=== PATIENT | female | born 1940 | race Caucasian/White ===

== ENCOUNTER → 2020-05-01 06:02 | Outpatient (CLI) | payer MEDICARE, OTHER, SELFPAY ==
--- NOTE | 2020-05-01 07:58 | STRESSREP ---
Stress Test Report Date: 05-01-2020 Procedure: Exercise tolerance test/imaging study Indications: Shortness of breath/dyspnea on exertion Consent: Per the patient Procedure: The patient exercised on a Toni protocol for 6 minutes completing Stage II achieving a peak heart rate of 160 bpm (114% predicted maximal heart rate) with a peak blood pressure 182/58 mmHg and a peak MET capacity of 7 METs. The baseline ECG demonstrated sinus rhythm. The peak exercise ECG demonstrated no obvious ECG changes. There was a rare PVC during exercise and a rare PAC during recovery. The functional capacity was considered good. There was no complaint of chest discomfort during exercise or recovery. The examination was discontinued secondary to dyspnea. Impression: 1. Technically adequate (percent predicted maximal heart rate greater than 85%) exercise tolerance test 2. Peak exercise ECG with no obvious ECG changes 3. There was a rare PVC during exercise and a rare PAC during recovery 4. Nuclear images pending Myocardial perfusion imaging study: Technique: The patient was injected with 11.1 mCi of technetium 99m Cardiolite and subsequently rest SPECT Cardiolite nuclear imaging was obtained in the horizontal long, vertical long, and short axis views. The patient exercised on a Toni protocol for 6 minutes completing Stage II achieving a peak heart rate of 160 bpm (114% predicted maximal heart rate) with a peak blood pressure 182/58 mmHg and a peak MET capacity of 7 METs. The patient was injected with 31.9 mCi of technetium 99m Cardiolite and subsequently stress SPECT Cardiolite nuclear imaging was obtained in the horizontal long, vertical long, and short axis views. A gated Cardiolite study at peak stress was obtained. Interpretation: Rest and stress SPECT Cardiolite nuclear imaging status post realignment, normalization, and attenuation correction, demonstrates the appearance of relative uniform tracer uptake and myocardial perfusion appearing within normal limits. There is end systolic thickening and brightening. The gated Cardiolite study demonstrates myocardial thickening and inward wall motion. The reported LVEF is 82%. Impression: 1. Rest and stress SPECT Cardiolite nuclear imaging demonstrate relative uniform tracer uptake and myocardial perfusion appearing within normal limits. 2. The gated Cardiolite study reports an LVEF of 82%. This note was generated with [employer] software. It may contain incorrect words, spelling, and punctuation that were not noted in checking the note before signing.
== END ==
PROVIDERS: PCP Internal Medicine; Referring Provider Internal Medicine; Visit Provider Internal Medicine
DX: R06.02 Shortness of breath (principal)
CPT/HCPCS: 78452; 93017; A9500; A4216